=== PATIENT | male | born 1975 | race Caucasian/White ===

== ENCOUNTER 2020-12-21 17:02 | Emergency (ER) | payer OTHER ==
[~2020-12-21] VITALS: Ht 175.3 cm; Wt 65.8 kg
[2020-12-21] MEDS ORDERED: KEPPRA750 MG PO (17:14)
[2020-12-21] MEDS ORDERED: DEPAKOTE250 MG PO (17:14)
[2020-12-21] MEDS ORDERED: LATUDA20 MG PO (17:15)
[2020-12-21] MEDS ORDERED: SERTRALINE HCL100 MG PO (17:15)
[2020-12-21] MEDS ORDERED: REMERON15 M2 PO (17:15)
[2020-12-21] MEDS ORDERED: CEPHALEXIN500 MG PO (17:39)
[2020-12-21] MEDS ORDERED: MUPIROCIN1 GM TOP (17:39)
[2020-12-21 17:46] VITALS: BP 130/70
== END 2020-12-21 17:47 | disposition home or self-care (01) ==
LOC: M.ERS 17:02
DX: S60.512A Abrasion of left hand, initial encounter (principal); L08.9 Local infection of the skin and subcutaneous tissue, unspecified; F17.210 Nicotine dependence, cigarettes, uncomplicated; Z79.899 Other long term (current) drug therapy; X58.XXXA Exposure to other specified factors, initial encounter; Y93.89 Activity, other specified; Y92.89 Other specified places as the place of occurrence of the external cause; Y99.8 Other external cause status